=== PATIENT | male | born 1980 | race Caucasian/White ===

== ENCOUNTER 2020-10-28 23:15 | Emergency (ER) | payer BC ==
[2020-10-28] MEDS ORDERED: Sodium Chloride 0.9% 1,000 ML ONE (23:45)
[2020-10-28] MEDS ORDERED: Ketorolac Tromethamine 30 MG/ML VIAL ONE (23:45)
[2020-10-28 23:47] LABS: #Basophils 0.2 thou/uL (0.0-0.2); #Eosinphils 0.2 thou/uL (0.0-0.7); #Lymphocytes 3.9 thou/uL (1.20-3.40); #Neutrophils 8.5 thou/uL (1.40-6.50); %Basophils 1.2 % (0.0-1.0); %Eosinophils 1.4 % (0.0-10.0); %Lymphocytes 28.3 % (21.0-51.0); %Monocytes 7.3 % (0.0-10.0); %Neutrophils 61.8 % (42.0-75.0); Hemoglobin 15.9 g/dL (14.0-18.0); Mean Corpuscular HGB CONC 33.1 g/dL (32.0-36.0); Mean Corpuscular Volume 90.7 fL (78.0-98.0); Mean Platelet Volume 10.7 fL (7.4-10.4); Platelet Count 233 thou/uL (130-400); Red Blood Cell (RBC) Count 5.28 mill/uL (4.70-6.10); White Blood Cell (WBC) Count 13.8 thou/uL (4.8-10.8)
[2020-10-29 00:01] LABS: ALT (SGPT) 30 U/L (8-55); AST (SGOT) 23 U/L (5-34); Albumin 4.7 g/dL (3.5-5.0); Alkaline Phosphatase 83 U/L (40-110); Anion Gap 16 mmol/L (10-20); BUN (Urea Nitrogen) 15 mg/dL (8.9-20.6); Bilirubin, Total 1.2 mg/dL (0.2-1.2); Calc. Creatinine Clearance 0 mL/min (70-130); Calcium 10.1 mg/dL (7.8-10.44); Carbon Dioxide 24 mmol/L (22-29); Chloride 104 mmol/L (98-107); Globulin 3.4 g/dL (2.4-3.5); Glucose 106 mg/dL (70-105); Potassium 3.9 mmol/L (3.5-5.1); Protein, Total 8.1 g/dL (6.0-8.3); Sodium 140 mmol/L (136-145)
[2020-10-29 04:06] LABS: Troponin I Less than 0.010 ng/mL (< 0.028)
== END 2020-10-29 04:35 | disposition home or self-care (01) ==
LOC: NAV ERS 23:15
DX: R07.89 Other chest pain (principal); F17.290 Nicotine dependence, other tobacco product, uncomplicated
CPT/HCPCS: 36415; 71046; 80053; 83880; 84484; 85025; 93005; 94760; 96374; J1885; J7050